=== PATIENT | female | born 1985 | race Caucasian/White ===

== ENCOUNTER 2025-03-14 10:49 | Outpatient (CLI) | payer MEDICAID ==
[~2025-03-14 10:49] MED LIST: LISI5TAB22 PO; MECL-302 PO; ONDA-243 PO
--- NOTE | 2025-03-14 11:45 | RADIOLOGY REPORT ---
CT CT ABDOMEN PELVIS INDICATION: UNSPECIFIED ABDOMINAL PAIN EXAM DATE: 03/14/2025 11:06 AM COMPARISON: None RADIATION DOSE: CTDIvol: 34 mGy, DLP: 1758 mGy*cm PROCEDURE: Helical CT images were obtained of the abdomen and pelvis without IV contrast Sagittal and coronal reconstructions are provided. ORAL CONTRAST: None. ADDITIONAL IMAGES / REFORMATS: None All C T scans at this medical facility are performed using dose modulation techniques as appropriate to a p erformed exam including the following: Automated exposure control was utilized; adjustment of the MA and/or KV according to patient size; and use of iterative reconstruction technique. FINDINGS: LUNG BASE: Normal. LIVER: Mild hepatic steatosis. GALLBLADDER AND BILIARY TREE: No calcified gallstones. Normal caliber wall. No intra- or extrahepatic biliary ductal dilation. PANCREAS: Normal. SPLEEN: Normal. BOWEL: Normal. Normal appendix. ADRENALS: Normal. KIDNEYS AND URETER: Punctate nonobstructive right kidney stone. BLADDER: Normal. REPRODUCTIVE ORGANS: Normal. LYMPH NODES:No lymphadenopathy. PERITONEUM: No ascites or free air. No other fluid collection. VESSELS: Scattered atherosclerotic calcifications are noted. RETROPERITONEUM: Normal. ABDOMINAL WALL: Normal. BONES: Scattered osseous degenerative changes are noted. IMPRESSION: Punctate nonobstructive right kidney stone. Mild hepatic steatosis.
== END 2025-03-14 23:59 | disposition home or self-care (01) ==
LOC: RAD 10:49
PROVIDERS: ATTEND Family Medicine
DX: K76.0 Fatty (change of) liver, not elsewhere classified (principal); R10.9 Unspecified abdominal pain; N20.0 Calculus of kidney
CPT/HCPCS: 74176